=== PATIENT | female | born 1985 | race American Indian/Alaskan Native ===

== ENCOUNTER 2017-06-11 15:17 | Emergency (ER) | payer MEDICAID, OTHER ==
[2017-06-11 15:41] VITALS: BP 141/77; PULSE 91; RESP 18; TEMP 98; O2SAT 100
[2017-06-11] MEDS ORDERED: Naproxen 550 mg Tab PO STA (16:43)
[2017-06-11] MEDS ORDERED: Naproxen 550 mg Tab PO ONE (16:53)
--- NOTE | 2017-06-11 17:01 | C.PDOC ---
History Of Present Illness 31 y/o female presents to ED with complaints of dental pain for "few days". Patient states pain is on the right lower dental area and denies fever, chills, trauma, active bleeding or any other complaints at this time. Time Seen by Provider: 06/11/17 16:18 Chief Complaint (Nursing): Dental Pain History Per: Patient History/Exam Limitations: no limitations Onset/Duration Of Symptoms: Days Current Symptoms Are (Timing): Still Present Past Medical History Reviewed: Historical Data, Nursing Documentation, Vital Signs Vital Signs: Last Vital Signs Temp 98 F 06/11/17 15:37 Pulse 91 H 06/11/17 15:37 Resp 18 06/11/17 15:37 BP 141/77 06/11/17 15:37 Pulse Ox 100 06/11/17 17:16 - Medical History PMH: No Chronic Diseases Surgical History: No Surg Hx Family History: States: No Known Family Hx - Social History Hx Alcohol Use: Yes Hx Substance Use: No - Immunization History Hx Tetanus Toxoid Vaccination: No Hx Influenza Vaccination: No Hx Pneumococcal Vaccination: No Review Of Systems Except As Marked, All Systems Reviewed And Found Negative. ENT: Positive for: Mouth Pain (Dental) Physical Exam - Physical Exam Appears: Non-toxic, No Acute Distress Skin: Normal Color, Warm, Dry, No Rash Head: Atraumatic, Normacephalic Eye(s): bilateral: Normal Inspection Nose: Normal Oral Mucosa: Moist Teeth: Caries Gingiva: Normal Appearing, No Erythema, No Ulceration Throat: Normal, No Erythema, No Exudate Neck: Supple Chest: Symmetrical Cardiovascular: Rhythm Regular Respiratory: Normal Breath Sounds, No Rales, No Rhonchi, No Wheezing Neurological/Psych: Oriented x3, Normal Speech ED Course And Treatment O2 Sat by Pulse Oximetry: 100 (RA) Pulse Ox Interpretation: Normal Disposition - Disposition Disposition: HOME/ ROUTINE Disposition Time: 05:00 Condition: STABLE Additional Instructions: please follow up with your doctor. return to er with worsening symptoms or concerns Prescriptions: Amoxicillin [Amoxil 500 mg Cap] 500 mg PO TID #21 cap Naproxen 500 mg PO BID PRN #14 tab PRN Reason: Pain, Mild (1-3) Instructions: Dental Caries (ED), Toothache (ED) Forms: [facility] (Telugu), Work Excuse - Clinical Impression Clinical Impression: Dental caries - Scribe Statement The provider has reviewed the documentation as recorded by the Lawandaibregla Coulter All medical record entries made by the Lawandaibregla were at my direction and personally dictated by me. I have reviewed the chart and agree that the record accurately reflects my personal performance of the history, physical exam, medical decision making, and the department course for this patient. I have also personally directed, reviewed, and agree with the discharge instructions and disposition.
--- NOTE | 2017-06-11 17:03 | C.PDOC ---
Time Seen by Provider: 06/11/17 16:18 Chief Complaint (Nursing): Dental Pain Past Medical History Vital Signs: Last Vital Signs Temp 98 F 06/11/17 15:37 Pulse 91 H 06/11/17 15:37 Resp 18 06/11/17 15:37 BP 141/77 06/11/17 15:37 Pulse Ox 100 06/11/17 15:37 - Social History Hx Alcohol Use: Yes Hx Substance Use: No - Immunization History Hx Tetanus Toxoid Vaccination: No Hx Influenza Vaccination: No Hx Pneumococcal Vaccination: No ED Course And Treatment O2 Sat by Pulse Oximetry: 100 Disposition - Disposition Disposition: HOME/ ROUTINE Disposition Time: 16:57 Condition: STABLE Additional Instructions: please follow up with your doctor. return to er with worsening symptoms or concerns Prescriptions: Amoxicillin [Amoxil 500 mg Cap] 500 mg PO TID #21 cap Naproxen 500 mg PO BID PRN #14 tab PRN Reason: Pain, Mild (1-3) Instructions: Dental Caries (ED), Toothache (ED) - Clinical Impression Clinical Impression: Dental caries
== END 2017-06-11 17:14 | disposition home or self-care (01) ==
LOC: C.ER 15:17
DX: K02.9 Dental caries, unspecified (principal)

== ENCOUNTER 2018-05-04 05:04 | Emergency (ER) | payer MEDICAID ==
[2018-05-04 05:18] VITALS: TEMP 98.5
--- NOTE | 2018-05-04 05:56 | C.PDOC ---
History Of Present Illness 32 year old female presents to the ED for evaluation of left lower jaw pain and swelling for he past couple of days. Patient reports symptoms have worsened, tried taking two 800 mg Ibuprofen with no relief. Patient denies fever, chills, injury, fall, trauma, nausea, vomit, headache. Time Seen by Provider: 05/04/18 05:36 Chief Complaint (Nursing): Dental Pain History Per: Patient History/Exam Limitations: no limitations Onset/Duration Of Symptoms: Days Severity: Moderate Pain Scale Rating Of: 5 Quality: Positive for: Dull, Aching Recent travel outside of the [place]: No Additional History Per: Patient Past Medical History Reviewed: Historical Data, Nursing Documentation, Vital Signs Vital Signs: Last Vital Signs Temp 98.5 F 05/04/18 05:15 Pulse 88 05/04/18 05:15 Resp 18 05/04/18 05:15 BP 127/90 05/04/18 05:15 Pulse Ox 98 05/04/18 05:15 - Medical History PMH: No Chronic Diseases Denies: Chronic Kidney Disease Surgical History: No Surg Hx Family History: States: Unknown Family Hx - Social History Hx Alcohol Use: Yes Hx Substance Use: No - Immunization History Hx Tetanus Toxoid Vaccination: No Hx Influenza Vaccination: No Hx Pneumococcal Vaccination: No Review Of Systems Constitutional: Negative for: Fever, Chills ENT: Positive for: Mouth Pain, Mouth Swelling. Negative for: Throat Pain, Throat Swelling Respiratory: Negative for: Cough Gastrointestinal: Negative for: Nausea, Vomiting Skin: Negative for: Rash Neurological: Negative for: Headache Physical Exam - Physical Exam Appears: Non-toxic, In Acute Distress Skin: Warm, Dry Head: Normacephalic, Tenderness (left lower jaw), Swelling (left lower jaw ) Eye(s): bilateral: Normal Inspection Ear(s): Bilateral: Normal Oral Mucosa: Moist Throat: No Erythema, No Exudate Neck: Normal ROM, Supple Neurological/Psych: Oriented x3, Normal Speech Gait: Steady ED Course And Treatment O2 Sat by Pulse Oximetry: 98 (ON RA) Pulse Ox Interpretation: Normal Progress Note: Plan: - percocet 1 tab PO. - penicillin 500 mg PO Disposition Counseled Patient/Family Regarding: Studies Performed, Diagnosis, Need For Followup, Rx Given - Disposition Disposition: HOME/ ROUTINE Disposition Time: 05:55 Condition: FAIR Additional Instructions: Please follow up with your dentist Prescriptions: Penicillin VK [Penicillin VK Tab] 500 mg PO QID #40 tab traMADol [Ultram] 50 mg PO QID PRN #20 tab PRN Reason: Pain, Severe (8-10) Instructions: Tooth Abscess (DC), Dental Pain (DC) Forms: [employer] (Portuguese) - Clinical Impression Clinical Impression: Dental abscess, Dental caries, Pain, dental - Scribe Statement The provider has reviewed the documentation as recorded by the Scribregla Salas All medical record entries made by the Scribe were at my direction and personally dictated by me. I have reviewed the chart and agree that the record accurately reflects my personal performance of the history, physical exam, medical decision making, and the department course for this patient. I have also personally directed, reviewed, and agree with the discharge instructions and disposition.
[2018-05-04] MEDS ORDERED: Oxycodone/Acetaminophen 5/325 mg Tab PO STA (05:57)
[2018-05-04] MEDS ORDERED: Oxycodone/Acetaminophen 5/325 mg Tab ONE (06:13)
[2018-05-04 07:08] VITALS: BP 110/72; PULSE 82; RESP 16; O2SAT 97
== END 2018-05-04 06:30 | disposition home or self-care (01) ==
LOC: C.ER 05:04
DX: K04.7 Periapical abscess without sinus (principal); K02.9 Dental caries, unspecified